=== PATIENT | male | born 1935 | race Caucasian/White ===

== ENCOUNTER → 2016-09-23 | Outpatient (CLI) | payer MEDICARE, OTHER | LOC: RAD 07:40 | PROVIDERS: ATTEND Specialist | DX: C13.9 Malignant neoplasm of hypopharynx, unspecified (principal) | CPT/HCPCS: 70491; 71260; 82565 ==

== ENCOUNTER → 2016-10-10 | Outpatient (CLI) | payer MEDICARE, OTHER ==
[2016-10-10 09:41] LABS: ABSOLUTE BASOPHILS # (AUTO) 0.2 10^3/uL (0.0-0.2); ABSOLUTE EOSINOPHILS # (AUTO) 0.5 10^3/uL (0.0-0.6); ABSOLUTE LYMPHOCYTES (AUTO) 1.4 10^3/uL (0.5-4.7); ABSOLUTE MONOCYTES (AUTO) 0.7 10^3/uL (0.1-1.4); ABSOLUTE NEUT (AUTO) 5.2 10^3/uL (1.7-8.2); EOSINOPHILS % (AUTO) 6.7 % (0-6); HEMATOCRIT 33.7 % (37.9-51.0); HEMOGLOBIN 11.3 g/dL (13.5-17.0); HGB HCT DIFFERENCE 0.2; LYMPHOCYTES % (AUTO) 17.7 % (13-45); MEAN CORPUSCULAR HEMOGLOBIN 25.6 pg (27.0-33.4); MEAN CORPUSCULAR HGB CONC 33.5 g/dL (32.0-36.0); MEAN CORPUSCULAR VOLUME 77 fl (80-97); MONOCYTES % (AUTO) 8.5 % (3-13); RED BLOOD COUNT 4.41 10^6/uL (4.35-5.55); RED CELL DISTRIBUTION WIDTH 17.8 % (11.5-14.0); SEGMENTED NEUTROPHILS % (AUTO) 65.1 % (42-78)
[2016-10-10 10:08] LABS: ALANINE AMINOTRANSFERASE 21 U/L (21-72); ALBUMIN 3.8 g/dL (3.5-5.0); ALKALINE PHOSPHATASE 101 U/L (38-126); ANION GAP 13 (5-19); ASPARTATE AMINO TRANSFERASE 37 U/L (17-59); BILIRUBIN,DIRECT 0.3 mg/dL (0.0-0.4); BILIRUBIN,TOTAL 0.5 mg/dL (0.2-1.3); BLOOD UREA NITROGEN 17 mg/dL (7-20); CALCIUM 9.2 mg/dL (8.4-10.2); CARBON DIOXIDE 26 mmol/L (22-30); CHLORIDE 106 mmol/L (98-107); CHOLESTEROL 197.33 mg/dL (0-200); Direct HDL 45 mg/dL (>40); GLUCOSE 90 mg/dL (75-110); SODIUM 144.5 mmol/L (137-145); TOTAL PROTEIN 7.2 g/dL (6.3-8.2); TRIGLYCERIDES 113 mg/dL (<150)
[2016-10-10 10:19] LABS: DIRECT LDL 111 mg/dL (<100)
== END ==
LOC: OD 07:46
PROVIDERS: ATTEND Internal Medicine
DX: I25.10 Atherosclerotic heart disease of native coronary artery without angina pectoris (principal); I10 Essential (primary) hypertension; E78.5 Hyperlipidemia, unspecified; E03.9 Hypothyroidism, unspecified; R64 Cachexia
CPT/HCPCS: 36415; 80053; 80061; 84443; 85025

== ENCOUNTER → 2017-01-07 | Outpatient (CLI) | payer MEDICARE, OTHER ==
[2017-01-07 09:39] LABS: FREE T3 3.68 pg/mL (2.77-5.27)
[2017-01-07 09:52] LABS: THYROID STIMULATING HORMONE 0.02 uIU/mL (0.47-4.68)
== END ==
LOC: OD 08:10
PROVIDERS: ATTEND Internal Medicine
DX: E03.9 Hypothyroidism, unspecified (principal)
CPT/HCPCS: 36415; 84439; 84443; 84481

== ENCOUNTER → 2017-02-10 | Outpatient (CLI) | payer MEDICARE, OTHER ==
--- NOTE | 2017-02-10 11:44 | RADIOLOGY REPORT (SQ) ---
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 Reconstructed coronal and sagittal MPR images reviewed. All images stored on PACS. All CT scanners at this facility use dose modulation, iterative reconstruction, and/or weight based d osing when appropriate to reduce radiation dose to as low as reasonably achievable (ALARA). [facility]: Dose Right [facility]: CareDose [facility]: Dose Right [facility]: Teradose 4D [facility]: [employer] CONTRAST TYPE AND DOSE: contrast/concentration: Isovue 370.00 mg/ml; Total Contrast Delivered: 75.0 ml; Total Saline Delivered: 55.0 ml RENAL FUNCTION: Creatinine 1.4 RADIATION DOSE: 12.8 mGy . LIMITATIONS: None. FINDINGS: On axial image 55, and sagittal image 64, of heterogeneously enhancing soft tissue nodul e fills the right vallecula, worrisome for recurrent tumor. This measures 1.5 cm transverse by 1.1 c m AP x 2.3 cm craniocaudad more prominent than on 09/23/2016 and PET-CT 03/22/2016. SKULL BASE: Intact. MAJOR SALIVARY GLANDS: No solid or cystic masses. No inflammatory changes. LYMPHADENOPATHY: No adenopathy. MUCOSAL MASSES OR ASYMMETRY: Vallecular mass as above. Post laryngectomy. LARYNX/CORDS: Post laryngectomy VASCULAR STRUCTURES: Very heavy carotid bifurcation calcification bilaterally, with greater than 70% proximal ICA stenosis on vessel diameter measurements. Consider carotid Doppler for followup. Right vertebral dominant, left vertebral artery origin directly off the aortic arch, an anatomic variant LUNG APICES: Obstructive lung disease. No masses. BONES: No fracture or malalignment. Advanced degenerative disc changes sat C3-4 and C4-5. THYROID: Surgically absent PARANASAL SINUSES: Left posterior ethmoid air cell fluid. OTHER: No other significant finding. IMPRESSION: Recurrent soft tissue mass along the rightward vallecula, 1.1 x 2.3 x 1.5 cm as above TECHNICAL DOCUMENTATION: JOB ID: [id number] Quality ID # 436: Final reports with documentation of one or more dose reduction techniques (e.g., Au tomated exposure control, adjustment of the mA and/or kV according to patient size, use of iterative reconstruction technique) 2010 [employer]- All Rights Reserved
== END ==
LOC: RAD 08:43
PROVIDERS: ATTEND Internal Medicine
DX: C13.9 Malignant neoplasm of hypopharynx, unspecified (principal)
CPT/HCPCS: 70491

== ENCOUNTER → 2017-02-16 | Outpatient (CLI) | payer MEDICARE, OTHER ==
--- NOTE | 2017-02-17 10:40 | RADIOLOGY REPORT (SQ) ---
EXAM DESCRIPTION: PET CT SKULL/THIGH COMPLETED DATE/TIME: 02/16/2017 11:27 pm REASON FOR STUDY: MALIGNANT NEOPLASM OF HYPOPHARYNX C13.9 MALIGNANT NEOPLASM OF HYPOPHARYNX, UNSPEC IFIED COMPARISON: 03/22/2016 RADIONUCLIDE AND DOSE: 11.1 mCi F18 FDG The route of agent administration: Intravenous FASTING BLOOD SUGAR: 88 mg/dl CONTRAST TYPE AND DOSE: No CT contrast given. TECHNIQUE: Blood glucose level was verified. Above dose of FDG was injected intravenously. 2-D seg mented attenuation correction images were obtained from the base of the skull to the midthighs. Nonc ontrast CT images were obtained for attenuation correction and fusion with emission images. CT image s were performed without oral or intravenous contrast and are not sensitive for parenchymal lesions. A series of overlapping emission PET images were obtained. Images reviewed and manipulated at [facility] work station by the radiologist. Images stored on PACS. LIMITATIONS: None. FINDINGS: HEAD AND NECK: Increased uptake measuring about 7.1 SUV within the right hypopharynx. The re is a rind of tissue that now measures about 8 mm. This previously measured about 4 mm and about 3 .7 SUV. CHEST: No areas of abnormal metabolic activity in the chest. ABDOMEN AND PELVIS: No areas of abnormal metabolic activity in the abdomen or pelvis. Expected physi ologic activity is present in the genitourinary system and bowel. PROXIMAL LOWER EXTREMITIES: No areas of abnormal metabolic activity in the soft tissues of the lower extremities. BONES: No abnormal metabolic activity in the visualized skeleton. ADDITIONAL CT FINDINGS: Left-sided port tip in the SVC. Old granulomatous disease. COPD. OTHER: No other significant findings. IMPRESSION: Local progression of hypermetabolic lesion in the hypopharynx. No evidence of distant m etastasis. TECHNICAL DOCUMENTATION: JOB ID: [id number] [employer]- All Rights Reserved
== END ==
LOC: RAD 18:57
PROVIDERS: ATTEND Internal Medicine
DX: C13.9 Malignant neoplasm of hypopharynx, unspecified (principal)
CPT/HCPCS: 78815; A9552

== ENCOUNTER → 2017-05-13 | Outpatient (CLI) | payer MEDICARE, OTHER | LOC: OD 08:36 | PROVIDERS: ATTEND Internal Medicine | DX: E03.9 Hypothyroidism, unspecified (principal) | CPT/HCPCS: 36415; 84443 ==

== ENCOUNTER → 2017-05-20 | Outpatient (CLI) | payer MEDICARE, OTHER ==
--- NOTE | 2017-05-20 10:32 | RADIOLOGY REPORT (SQ) ---
EXAM DESCRIPTION: CT CHEST WITH COMPLETED DATE/TIME: 05/20/2017 9:35 am REASON FOR STUDY: CA OF HYPOPHARYNX C13.9 MALIGNANT NEOPLASM OF HYPOPHARYNX, UNSPECIFIED COMPARISON: PET-CT from January. CT chest from September. TECHNIQUE: CT scan of the chest performed using helical scanning technique with dynamic intravenous contrast injection. Images reviewed with lung, soft tissue and bone windows. Reconstructed coronal and sagittal MPR images reviewed. All images stored on PACS. All CT scanners at this facility use dose modulation, iterative reconstruction, and/or weight based d osing when appropriate to reduce radiation dose to as low as reasonably achievable (ALARA). [facility]: Dose Right [facility]: CareDose [facility]: Dose Right [facility]: Teradose 4D [facility]: [employer] CONTRAST TYPE AND DOSE: contrast/concentration: Isovue 370.00 mg/ml; Total Contrast Delivered: 80.0 ml; Total Saline Delivered: 55.0 ml RENAL FUNCTION: Creatinine 1.2 RADIATION DOSE: . LIMITATIONS: None. FINDINGS: LUNGS AND PLEURA: Hyperinflated. Mild apical scar, chronic. No developing lesions. No p leural disease. HILAR AND MEDIASTINAL STRUCTURES: No identified masses or abnormal nodes. HEART AND VASCULAR STRUCTURES: No pericardial effusion. Previous CABG. Mild aortic ectasia, ascendi ng segment 3.6 cm. No focal aneurysm or dissection. Patent brachiocephalic and left common carotid arteries. Left subclavian artery looks occluded just beyond origin. HARDWARE: Left port. UPPER ABDOMEN: No significant findings. Limited exam. THYROID AND OTHER SOFT TISSUES: Thyroid presumably surgically absent. Please see separately dictated neck CT from same date. No overt chest wall mass. No developing or progressive axillary adenopathy . Subcentimeter nodes on the right. BONES: No developing fracture or bone lesion. OTHER: No other significant finding. IMPRESSION: 1. No evidence of thoracic metastatic disease. 2. Occluded left proximal subclavian ar wesley. TECHNICAL DOCUMENTATION: JOB ID: [id number] Quality ID # 436: Final reports with documentation of one or more dose reduction techniques (e.g., Au tomated exposure control, adjustment of the mA and/or kV according to patient size, use of iterative reconstruction technique) 2010 [employer]- All Rights Reserved
--- NOTE | 2017-05-20 11:29 | RADIOLOGY REPORT (SQ) ---
EXAM DESCRIPTION: CT SOFT TISSUE NECK WITH COMPLETED DATE/TIME: 05/20/2017 9:35 am REASON FOR STUDY: CA OF HYPOPHARYNX C13.9 MALIGNANT NEOPLASM OF HYPOPHARYNX, UNSPECIFIED COMPARISON: PET-CT 03/22/2016, 02/10/2017 CT soft tissue neck 09/23/2016, 02/10/2017 TECHNIQUE: Post IV contrasted scanning from skull base through lung apices with review of bone, soft tissue and lung windows. Reconstructed coronal and sagittal MPR images reviewed. All images stored on PACS. All CT scanners at this facility use dose modulation, iterative reconstruction, and/or weight based d osing when appropriate to reduce radiation dose to as low as reasonably achievable (ALARA). [facility]: Dose Right [facility]: CareDose [facility]: Dose Right [facility]: Teradose 4D [facility]: [facility] CONTRAST TYPE AND DOSE: 80 mL Isovue 370- low osmolar. RENAL FUNCTION: Creatinine 1.2 RADIATION DOSE: 4.8 mGy . LIMITATIONS: None. FINDINGS: Patient is post laryngectomy, tracheostomy, and bilateral radical neck dissection. There is recurrent tumor in the right hypopharynx, 2.2 cm transverse by 1.2 cm AP by 2.4 cm cranioca udad. Recurrent tumor is best shown on axial images 62-69 and sagittal reconstruction images 72-80. Tumor extends from the level of the hyoid bone inferiorly, and is along the right hypopharynx with a tail of tissue extending anteriorly to across midline. Overall, this is very similar as compared to PET-CT 02/16/2017. SKULL BASE: Intact. MAJOR SALIVARY GLANDS: Parotid glands are normal size. Submandibular glands appear to have been rese cted. LYMPHADENOPATHY: No bulky cervical adenopathy. 4 to 5 mm left submental lymph node axial image 65, u nchanged from previous studies go MUCOSAL MASSES OR ASYMMETRY: As above LARYNX/CORDS: Post laryngectomy VASCULAR STRUCTURES: There is significant narrowing of the distal left common carotid artery/proximal internal carotid artery at the bifurcation with greater than 70% diameter narrowing. Atheroscleroti c irregularity right carotid bifurcation with about 50% proximal right ICA stenosis. LUNG APICES: Clear. BONES: Sclerosis in the C4 vertebral body may be related to prior radiation therapy THYROID: Surgically absent PARANASAL SINUSES: Clear. OTHER: No other significant finding. IMPRESSION: Stable hypopharynx enhancing recurrent tumor as compared to PET-CT 02/16/2017 TECHNICAL DOCUMENTATION: JOB ID: [id number] Quality ID # 436: Final reports with documentation of one or more dose reduction techniques (e.g., Au tomated exposure control, adjustment of the mA and/or kV according to patient size, use of iterative reconstruction technique) 2010 [employer] All Rights Reserved
== END ==
LOC: RAD 08:47
PROVIDERS: ATTEND Internal Medicine
DX: C13.9 Malignant neoplasm of hypopharynx, unspecified (principal)
CPT/HCPCS: 70491; 71260; 82565

== ENCOUNTER → 2017-09-22 | Outpatient (CLI) | payer MEDICARE, OTHER ==
--- NOTE | 2017-09-22 09:52 | RADIOLOGY REPORT (SQ) ---
EXAM DESCRIPTION: CT CHEST WITH COMPLETED DATE/TIME: 09/22/2017 9:31 am REASON FOR STUDY: MAL CECY OF HYPOPHARYNX, UNSPECIFIED C13.9 MALIGNANT NEOPLASM OF HYPOPHARYNX, UNSP ECIFIED COMPARISON: CT chest 09/23/2016, 05/20/2017 PET-CT 03/22/2016 TECHNIQUE: CT scan of the chest performed using helical scanning technique with dynamic intravenous contrast injection. Images reviewed with lung, soft tissue and bone windows. Reconstructed coronal and sagittal MPR images reviewed. All images stored on PACS. All CT scanners at this facility use dose modulation, iterative reconstruction, and/or weight based d osing when appropriate to reduce radiation dose to as low as reasonably achievable (ALARA). [facility]: Dose Right [facility]: CareDose [facility]: Dose Right [facility]: Teradose 4D [facility]: [employer] CONTRAST TYPE AND DOSE: contrast/concentration: Isovue 370.00 mg/ml; Total Contrast Delivered: 80.0 ml; Total Saline Delivered: 55.0 ml RENAL FUNCTION: Creatinine 1.3 RADIATION DOSE: CT Rad equipment meets quality standard of care and radiation dose reduction techniq ues were employed. CTDIvol: 3.9 mGy. DLP: 170 mGy-cm. . LIMITATIONS: None. FINDINGS: LUNGS AND PLEURA: Diffuse changes of obstructive lung disease. No acute infiltrates. No pulmonary nodules. No pleural effusion. No pneumothorax. HILAR AND MEDIASTINAL STRUCTURES: No identified masses or abnormal nodes. HEART AND VASCULAR STRUCTURES: No aneurysm or dissection. No central pulmonary emboli. No pericardi al effusion. Mild aortic valve calcification. Moderate platinum coronary artery calcifications. Old sternotomy for CABG HARDWARE: Left-sided permanent central line tip superior vena cava UPPER ABDOMEN: No significant findings. Limited exam. THYROID AND OTHER SOFT TISSUES: No masses. No adenopathy. BONES: No significant finding. OTHER: No other significant finding. IMPRESSION: End-stage appearance of obstructive lung disease. No acute infiltrates. No worrisome p ulmonary nodules. TECHNICAL DOCUMENTATION: JOB ID: [id number] Quality ID # 436: Final reports with documentation of one or more dose reduction techniques (e.g., Au tomated exposure control, adjustment of the mA and/or kV according to patient size, use of iterative reconstruction technique) 2010 [employer]- All Rights Reserved Reading location - IP/workstation name: [facility]
== END ==
LOC: RAD 09:01
PROVIDERS: ATTEND Internal Medicine Hematology & Oncology
DX: C13.9 Malignant neoplasm of hypopharynx, unspecified (principal); J44.9 Chronic obstructive pulmonary disease, unspecified
CPT/HCPCS: 71260

== ENCOUNTER → 2017-09-29 | Outpatient (CLI) | payer MEDICARE, OTHER ==
--- NOTE | 2017-09-29 15:38 | RADIOLOGY REPORT (SQ) ---
EXAM DESCRIPTION: CT SOFT TISSUE NECK WITH COMPLETED DATE/TIME: 09/29/2017 2:36 pm REASON FOR STUDY: MAL CECY OF HYPOPHARYNX, UNSPECIFIED/OVERLAPPING SITE OF HYPOPHARYNX C13.9 MALIGNA NT NEOPLASM OF HYPOPHARYNX, UNSPECIFIED COMPARISON: CT soft tissue neck 05/20/2017, 02/10/2017, 09/23/2016, 07/19/2014, 09/30/2014 PET-CT 03/22/2016, 11/12/2015 TECHNIQUE: Post IV contrasted scanning from skull base through lung apices with review of bone, soft tissue and lung windows. Reconstructed coronal and sagittal MPR images reviewed. All images stored on PACS. All CT scanners at this facility use dose modulation, iterative reconstruction, and/or weight based d osing when appropriate to reduce radiation dose to as low as reasonably achievable (ALARA). [facility]: Dose Right [facility]: CareDose [facility]: Dose Right [facility]: Teradose 4D [facility]: [employer] CONTRAST TYPE AND DOSE: contrast/concentration: Isovue 370.00 mg/ml; Total Contrast Delivered: 75.0 ml; Total Saline Delivered: 55.0 ml RENAL FUNCTION: Creatinine 1.1 RADIATION DOSE: 10.8 mGy . LIMITATIONS: None. FINDINGS: Patient is post laryngectomy, tracheostomy and bilateral radical neck dissection. There is recurrent tumor in the right hypopharynx, larger than on 05/20/2017 and PET-CT 02/16/2017. C urrently tumor measures 3 cm craniocaudad by 3 cm AP x 2 cm transverse (was 2.4 cm craniocaudad by 1. 2 cm AP x 2.2 cm transverse on 05/20/2017). No cervical adenopathy. No other pharyngeal mucosal lesions. SKULL BASE: Inferior brain parenchyma unremarkable. MAJOR SALIVARY GLANDS: No solid or cystic masses. No inflammatory changes. LYMPHADENOPATHY: Bilateral radical neck dissection. No adenopathy. MUCOSAL MASSES OR ASYMMETRY: As above LARYNX/CORDS: Post laryngectomy VASCULAR STRUCTURES: Again, a high-grade narrowing of the disc left proximal ICA at the carotid bifur cation is present, greater than 70% narrowing on axial image 57. LUNG APICES: Obstructive lung disease. No focal infiltrates BONES: Osteoporotic. Bilateral foraminal narrowing at C3-4 and C4-5 from bony spurring. THYROID: Surgically absent PARANASAL SINUSES: Clear. OTHER: No other significant finding. IMPRESSION: Increase in size of hypopharyngeal mass compared to 05/20/2017 TECHNICAL DOCUMENTATION: JOB ID: [id number] Quality ID # 436: Final reports with documentation of one or more dose reduction techniques (e.g., Au tomated exposure control, adjustment of the mA and/or kV according to patient size, use of iterative reconstruction technique) 2010 [employer]- All Rights Reserved Reading location - IP/workstation name: [email or web address] [id number]
== END ==
LOC: RAD 14:08
PROVIDERS: ATTEND Internal Medicine Hematology & Oncology
DX: C13.8 Malignant neoplasm of overlapping sites of hypopharynx (principal); J44.9 Chronic obstructive pulmonary disease, unspecified
CPT/HCPCS: 70491

== ENCOUNTER 2017-12-08 18:22 | Inpatient (IN) | payer MEDICARE, OTHER ==
[2017-12-08] MEDS ORDERED: NORMAL SALINE 250 ML IV ONE (20:07)
[2017-12-08] MEDS ORDERED: VANCOMYCIN HCL INJ 1000 MG VIAL IV ONE (20:08)
[2017-12-08 20:49] LABS: ABSOLUTE BASOPHILS # (AUTO) 0.1 10^3/uL (0.0-0.2); ABSOLUTE EOSINOPHILS # (AUTO) 0.1 10^3/uL (0.0-0.6); ABSOLUTE LYMPHOCYTES (AUTO) 0.5 10^3/uL (0.5-4.7); ABSOLUTE MONOCYTES (AUTO) 0.4 10^3/uL (0.1-1.4); ABSOLUTE NEUT (AUTO) 4.5 10^3/uL (1.7-8.2); BASOPHILS % (AUTO) 1.1 % (0-2); EOSINOPHILS % (AUTO) 0.9 % (0-6); HEMATOCRIT 31.9 % (37.9-51.0); HEMOGLOBIN 11.1 g/dL (13.5-17.0); LYMPHOCYTES % (AUTO) 8.4 % (13-45); MEAN CORPUSCULAR HGB CONC 34.6 g/dL (32.0-36.0); MEAN CORPUSCULAR VOLUME 84 fl (80-97); PLATELET COUNT 309 10^3/uL (150-450); RED BLOOD COUNT 3.82 10^6/uL (4.35-5.55); RED CELL DISTRIBUTION WIDTH 13.8 % (11.5-14.0); SEGMENTED NEUTROPHILS % (AUTO) 81.6 % (42-78); TOTAL CELLS COUNTED % (AUTO) 100 %; WHITE BLOOD COUNT 5.6 10^3/uL (4.0-10.5)
[2017-12-08 21:04] LABS: ALANINE AMINOTRANSFERASE 19 U/L (21-72); ALBUMIN 2.7 g/dL (3.5-5.0); ALKALINE PHOSPHATASE 88 U/L (38-126); ANION GAP 10 (5-19); ASPARTATE AMINO TRANSFERASE 11 U/L (17-59); BILIRUBIN,DIRECT 0.6 mg/dL (0.0-0.4); BLOOD UREA NITROGEN 28 mg/dL (7-20); CALCIUM 8.5 mg/dL (8.4-10.2); CARBON DIOXIDE 29 mmol/L (22-30); CHLORIDE 100 mmol/L (98-107); CREATINE KINASE 21 U/L (55-170); GLUCOSE 53 mg/dL (75-110); PHOSPHORUS 3.8 mg/dL (2.5-4.5); POTASSIUM 4.6 mmol/L (3.6-5.0); TOTAL PROTEIN 5.9 g/dL (6.3-8.2)
[2017-12-08 21:27] LABS: CREATINE KINASE MB 0.56 ng/mL (<4.55); NT PRO BNP 1140 pg/mL (<450)
[2017-12-08 21:33] LABS: TROPONIN I < 0.012 ng/mL
--- NOTE | 2017-12-08 22:14 | EKG REPORT ---
SEVERITY:- NORMAL ECG - SINUS RHYTHM : Confirmed by: Margarita Griffiths 08-Dec-2017 22:13:50
--- NOTE | 2017-12-08 22:31 | RADIOLOGY REPORT (SQ) ---
EXAM DESCRIPTION: CT HEAD WITHOUT COMPLETED DATE/TIME: 12/08/2017 10:17 pm REASON FOR STUDY: fall COMPARISON: None. TECHNIQUE: Axial images acquired through the brain without intravenous contrast. Images reviewed wi th bone, brain and subdural windows. Additional sagittal and coronal reconstructions were generated. Images stored on PACS. All CT scanners at this facility use dose modulation, iterative reconstruction, and/or weight based d osing when appropriate to reduce radiation dose to as low as reasonably achievable (ALARA). [facility]: Dose Right [facility]: CareDose [facility]: Dose Right [facility]: Teradose 4D [facility]: [employer] RADIATION DOSE: CT Rad equipment meets quality standard of care and radiation dose reduction techniq ues were employed. CTDIvol: 53.2 mGy. DLP: 911 mGy-cm. mGy. LIMITATIONS: None. FINDINGS: VENTRICLES: Normal size and contour. CEREBRUM: No masses. No hemorrhage. No midline shift. No evidence for acute infarction. Normal gra y/white matter differentiation. No areas of low density in the white matter. CEREBELLUM: No masses. No hemorrhage. No alteration of density. No evidence for acute infarction. EXTRAAXIAL SPACES: No fluid collections. No masses. ORBITS AND GLOBE: No intra- or extraconal masses. Normal contour of globe without masses. CALVARIUM: No fracture. PARANASAL SINUSES: No fluid or mucosal thickening. SOFT TISSUES: No mass or hematoma. OTHER: No other significant finding. IMPRESSION: NORMAL BRAIN CT WITHOUT CONTRAST. EVIDENCE OF ACUTE STROKE: NO. COMMENT: Quality ID # 436: Final reports with documentation of one or more dose reduction techniques (e.g., Automated exposure control, adjustment of the mA and/or kV according to patient size, use of iterative reconstruction technique) TECHNICAL DOCUMENTATION: JOB ID: [id number] [employer]- All Rights Reserved Reading location - IP/workstation name: [email or web address]
--- NOTE | 2017-12-08 22:32 | RADIOLOGY REPORT (SQ) ---
EXAM DESCRIPTION: SHOULDER RIGHT 2 OR MORE VIEWS COMPLETED DATE/TIME: 12/08/2017 10:24 pm REASON FOR STUDY: fall COMPARISON: None. NUMBER OF VIEWS: Three views. TECHNIQUE: Internal rotation, external rotation, and Y view images acquired of the right shoulder. LIMITATIONS: None. FINDINGS: MINERALIZATION: Normal. BONES: No acute fracture or dislocation. No worrisome bone lesions. JOINTS: No dislocation. VISUALIZED LUNGS AND RIBS: No pneumothorax. No rib fracture. SOFT TISSUES: No radiopaque foreign body. OTHER: No other significant finding. IMPRESSION: NEGATIVE STUDY OF THE RIGHT SHOULDER. NO RADIOGRAPHIC EVIDENCE OF ACUTE INJURY. TECHNICAL DOCUMENTATION: JOB ID: [id number] [employer]- All Rights Reserved Reading location - IP/workstation name: [email or web address]
--- NOTE | 2017-12-08 23:16 | RADIOLOGY REPORT (SQ) ---
EXAM DESCRIPTION: CT neck and chest with IV contrast CLINICAL HISTORY: H/o of cancer, trach, SOB unable to swallow COMPARISON: None Available. TECHNIQUE: Contiguous axial images of the chest and neck were obtained followed by reconstruction images. This exam was performed according to our departmental dose-optimization program, which includes automated exposure control, adjustment of the mA and/or kV according to patient size and/or use of iterative reconstruction technique. FINDINGS: There is a heterogeneous mass lesion involving the mucosal of the oral pharynx and trachea on the right side and There is a heterogeneous partially enhancing mass seen at the right side of the oropharynx at the level of C3-4 and extending down to the level of the epiglottis where it completely surrounds the esophagus with no lumen identified, at the level of C5-6, and extends down to the level of C7-T1. This mass encases the esophagus. There are mildly enlarged lymph nodes involving the neck base and mediastinum. The patient is cachectic. There are postsurgical changes. There are vascular calcifications. There are extensive emphysematous changes of the lungs. Calcified nodule in the left lung measures 5 mm. Calcified nodule in the right mid lung measures 4 mm. No pneumothorax. The left subclavian artery appears occluded just at its origin. It reconstitutes at the level of the neck base. The aorta is tortuous. There is a filling defect in the aorta of the upper abdomen, incompletely imaged. No other acute abnormality. IMPRESSION: Heterogeneous mass encases the esophagus as described and is highly worrisome for neoplasm.
--- NOTE | 2017-12-08 23:16 | RADIOLOGY REPORT (SQ) ---
EXAM DESCRIPTION: CLINICAL HISTORY: H/o of cancer, trach, SOB unable to swallow COMPARISON: None Available. TECHNIQUE: Contiguous axial images of the chest were obtained from the thoracic inlet up to the upper abdomen followed by reconstruction images. This exam was performed according to our departmental dose-optimization program, which includes automated exposure control, adjustment of the mA and/or kV according to patient size and/or use of iterative reconstruction technique. FINDINGS: There is a heterogeneous mass lesion involving the mucosal of the oral pharynx and trachea on the right side and There is a heterogeneous partially enhancing mass seen at the right side of the oropharynx at the level of C3-4 and extending down to the level of the epiglottis where it completely surrounds the esophagus with no lumen identified, at the level of C5-6, and extends down to the level of C7-T1. This mass encases the esophagus. There are mildly enlarged lymph nodes involving the neck base and mediastinum. The patient is cachectic. There are postsurgical changes. There are vascular calcifications. There are extensive emphysematous changes of the lungs. Calcified nodule in the left lung measures 5 mm. Calcified nodule in the right mid lung measures 4 mm. No pneumothorax. The left subclavian artery appears occluded just at its origin. It reconstitutes at the level of the neck base. The aorta is tortuous. There is a filling defect in the aorta of the upper abdomen, incompletely imaged. No other acute abnormality. The aorta is of normal contour and tapering. There is no pericardial or pleural fluid collection. There is no parenchymal consolidation or pneumothorax. Limited images of the upper abdomen are within normal limits. IMPRESSION: Heterogeneous mass encases the esophagus as described and is highly worrisome for neoplasm.
[2017-12-09] MEDS ORDERED: DEXTROSE 5%-LACTATED RINGERS 1,000 ML IV PRN (00:19)
--- NOTE | 2017-12-09 00:27 | PDOC H&P ---
History of Present Illness Admission Date/PCP: TOYA GAY, History of Present Illness: DEEPAK WILSON is a very pleasant but unfortunate 82 year old male with past medical history of hypertension, hyperlipidemia, peripheral arterial disease, hypothyroidism, coronary artery disease and laryngeal CA. First patient was diagnosed with laryngeal CA in 1990 he is status post total laryngectomy. Patient has been in remission and in good condition until 3 years when his cancer recurred. Patient has progressive weight loss decreased appetite and poor oral intake since then. He CT scan of the neck reported as heterogeneous mass encasing the esophagus. Patient is basically admitted for hydration, palliative care and possible hospice placement. Past Medical History Cardiac Medical History: Reports: Coronary Artery Disease, Myocardial Infarction - 2005, Hypertension - on meds Pulmonary Medical History: Reports: Chronic Obstructive Pulmonary Disease (COPD ) - o2 prn 2l nc Denies: Asthma, Bronchitis, Pneumonia, Tuberculosis Neurological Medical History: Denies: Seizures GI Medical History: Reports: Gastroesophageal Reflux Disease Denies: Hepatitis, Hiatal Hernia Musculoskeltal Medical History: Denies: Arthritis Psychiatric Medical History: Denies: Depression Hematology: Denies: Anemia, Sickle Cell Disease Past Surgical History Past Surgical History: Reports: Other - Laryngectomy Denies: Pacemaker Social History Smoking Status: Former Smoker Frequency of Alcohol Use: None Hx Recreational Drug Use: No Drugs: None Hx Prescription Drug Abuse: No - Advance Directive Resuscitation Status: Do Not Resuscitate Family History Family History: Hypertension Parental Family History Reviewed: Yes Children Family History Reviewed: Yes Sibling(s) Family History Reviewed.: Yes Medication/Allergy Home Medications: Aspirin [Ecotrin 81 mg EC Tablet] 81 mg PO DAILY 07/20/12 Levothyroxine Sodium [Synthroid 0.1 mg Tablet] 88 mcg PO DAILY 07/20/12 Lisinopril [Prinivil 20 mg Tablet] 20 mg PO BID 07/20/12 Allergies/Adverse Reactions: ibuprofen [From Motrin] Allergy (Mild, Verified 12/08/17 18:58) GETS VERY SICK atorvastatin calcium [From Lipitor] Allergy (Verified 12/08/17 18:58) GET VERY SICK Review of Systems Constitutional: ABSENT: chills, fever(s), headache(s), weight gain, weight loss Eyes: ABSENT: visual disturbances Ears: ABSENT: hearing changes Cardiovascular: ABSENT: chest pain, dyspnea on exertion, edema, orthropnea, palpitations Respiratory: ABSENT: cough, hemoptysis Gastrointestinal: ABSENT: abdominal pain, constipation, diarrhea, hematemesis, hematochezia, nausea, vomiting Genitourinary: ABSENT: dysuria, hematuria Musculoskeletal: ABSENT: joint swelling Integumentary: ABSENT: rash, wounds Neurological: ABSENT: abnormal gait, abnormal speech, confusion, dizziness, focal weakness, syncope Psychiatric: ABSENT: anxiety, depression, homidical ideation, suicidal ideation Endocrine: ABSENT: cold intolerance, heat intolerance, polydipsia, polyuria Hematologic/Lymphatic: ABSENT: easy bleeding, easy bruising Physical Exam Vital Signs: Temp Pulse Resp BP Pulse Ox 97.5 F 89 20 104/64 98 12/08/17 19:01 12/08/17 19:01 12/08/17 21:03 12/08/17 21:01 12/08/17 19:01 Intake & Output 12/07/17 12/08/17 12/09/17 06:59 06:59 06:59 Weight 45.359 kg General appearance: PRESENT: other - Cachectic Head exam: PRESENT: atraumatic, normocephalic Ear exam: PRESENT: normal external ear exam Neck exam: PRESENT: tracheostomy Respiratory exam: PRESENT: crackles, decreased breath sounds, rhonchi Cardiovascular exam: PRESENT: RRR. ABSENT: diastolic murmur, rubs, systolic murmur Neurological exam: PRESENT: alert, awake Psychiatric exam: PRESENT: depressed Results Laboratory Results: 12/08/17 20:25 12/08/17 20:25 12/08/17 12/08/17 12/08/17 20:25 20:25 20:25 WBC 5.6 RBC 3.82 L Hgb 11.1 L Hct 31.9 L MCV 84 MCH 29.0 MCHC 34.6 RDW 13.8 Plt Count 309 Seg Neutrophils % 81.6 H Lymphocytes % 8.4 L Monocytes % 8.0 Eosinophils % 0.9 Basophils % 1.1 Absolute Neutrophils 4.5 Absolute Lymphocytes 0.5 Absolute Monocytes 0.4 Absolute Eosinophils 0.1 Absolute Basophils 0.1 Sodium 139.0 Potassium 4.6 Chloride 100 Carbon Dioxide 29 Anion Gap 10 BUN 28 H Creatinine 1.28 H Est GFR ( Amer) > 60 Est GFR (Non-Af Amer) 54 L Glucose 53 L Lactic Acid 0.9 Calcium 8.5 Phosphorus 3.8 Magnesium 2.2 Total Bilirubin 1.0 AST 11 L ALT 19 L Alkaline Phosphatase 88 Total Protein 5.9 L Albumin 2.7 L 12/08/17 12/08/17 20:25 20:25 Creatine Kinase 21 L CK-MB (CK-2) 0.56 Troponin I < 0.012 NT-Pro-B Natriuret Pep 1140 H Impressions: Chest CT 12/08/17 20:04 IMPRESSION: Heterogeneous mass encases the esophagus as described and is highly worrisome for neoplasm. Soft Tissue Neck CT 12/08/17 20:04 IMPRESSION: Heterogeneous mass encases the esophagus as described and is highly worrisome for neoplasm. Head CT 12/08/17 21:43 IMPRESSION: NORMAL BRAIN CT WITHOUT CONTRAST. EVIDENCE OF ACUTE STROKE: NO. Shoulder X-Ray 12/08/17 21:43 IMPRESSION: NEGATIVE STUDY OF THE RIGHT SHOULDER. NO RADIOGRAPHIC EVIDENCE OF ACUTE INJURY. Assessment & Plan - Diagnosis (1) Pulmonary laryngeal squamous cell carcin Is this a current diagnosis for this admission?: Yes Plan: Patient and family agree for palliative care and possible hospice placement. ER attending also discussed the case with Dr. Espinoza who is going to see him tomorrow (2) Poor oral intake Is this a current diagnosis for this admission?: Yes Plan: Patient has been started on D5W and Ringer lactate.
--- NOTE | 2017-12-09 00:35 | ER Document Report ---
ED General - General Chief Complaint: Pedal Edema Stated Complaint: HAND/FEET SWELLING Time Seen by Provider: 12/08/17 19:03 Mode of Arrival: Ambulatory Information source: Patient, Relative, [facility] Records Notes: 82 year old male with hypertension, hyperlipidemia, peripheral arterial disease, hypothyroidism, coronary artery disease and laryngeal CA. Patient was diagnosed with laryngeal CA in 1990 he is status post total laryngectomy. He was in remission until 3 years ago when cancer recurred. Patient has progressive weight loss decreased appetite and poor oral intake since then. Sons are at the bedside and states that the patient has been unable to swallow any food or liquid for the past week. They state that every time he swallows it immediately comes up. Patient also had a fall today. He denies any head injury or loss of consciousness but is complaining of right shoulder pain. Son's also state that they noticed some purulent drainage from the trach site over the last few days. They state this is new. Patient does currently receive K Truvada for his laryngeal cancer. TRAVEL OUTSIDE OF THE [place] IN LAST 30 DAYS: No - HPI Onset: Other Onset/Duration: Gradual Quality of pain: Throbbing Severity: Mild Associated symptoms: Productive cough, Nausea, Shortness of breath. denies: Chest pain Exacerbated by: Denies Relieved by: Denies Similar symptoms previously: Yes Recently seen / treated by doctor: Yes - Related Data Allergies/Adverse Reactions: ibuprofen [From Motrin] Allergy (Mild, Verified 12/08/17 18:58) GETS VERY SICK atorvastatin calcium [From Lipitor] Allergy (Verified 12/08/17 18:58) GET VERY SICK Past Medical History - General Information source: Patient, Relative, [facility] Records - Social History Smoking Status: Former Smoker Frequency of alcohol use: None Drug Abuse: None Lives with: Family Family History: Reviewed & Not Pertinent, Hypertension Patient has suicidal ideation: No Patient has homicidal ideation: No - Past Medical History Cardiac Medical History: Reports: Hx Coronary Artery Disease, Hx Heart Attack - 2005, Hx Hypertension - on meds Pulmonary Medical History: Reports: Hx COPD - o2 prn 2l nc Denies: Hx Asthma, Hx Bronchitis, Hx Pneumonia, Hx Tuberculosis Neurological Medical History: Denies: Hx Cerebrovascular Accident, Hx Seizures Renal/ Medical History: Denies: Hx Peritoneal Dialysis GI Medical History: Reports: Hx Gastroesophageal Reflux Disease. Denies: Hx Hepatitis, Hx Hiatal Hernia, Hx Ulcer Musculoskeltal Medical History: Denies Hx Arthritis Psychiatric Medical History: Denies: Hx Depression Infectious Medical History: Denies: Hx Hepatitis Past Surgical History: Reports: Hx Abdominal Surgery - AAA, Hx Open Heart Surgery - CABG X 5, Other - Laryngectomy. Denies: Hx Pacemaker - Immunizations Hx Diphtheria, Pertussis, Tetanus Vaccination: - UNSURE Hx Pneumococcal Vaccination: 03/25/11 Review of Systems - Review of Systems Constitutional: Malaise, Weakness, Other - Poor p.o. intake, Weight loss EENT: Throat pain, Difficulty swallowing Cardiovascular: Lightheaded. denies: Chest pain, Palpitations, Syncope Respiratory: Cough, Short of breath Gastrointestinal: Nausea. denies: Abdominal pain Genitourinary: denies: Dysuria, Flank pain Male Genitourinary: No symptoms reported Musculoskeletal: Joint swelling - Right shoulder pain, Muscle stiffness Skin: Rash - Erythema of the upper chest Hematologic/Lymphatic: Enlarged lymph nodes Neurological/Psychological: Weakness. denies: Confusion -: Yes All other systems reviewed and negative Physical Exam - Vital signs Vitals: Temp Pulse Resp BP Pulse Ox 97.5 F 89 16 97/63 L 98 12/08/17 19:01 12/08/17 19:01 12/08/17 19:01 12/08/17 19:01 12/08/17 19:01 - Notes Notes: PHYSICAL EXAMINATION: GENERAL: Cachectic, ill-appearing HEAD: Atraumatic, normocephalic. EYES: Pupils equal round and reactive to light, extraocular movements intact, sclera anicteric, conjunctiva are normal. ENT: Nares patent, oropharynx clear without exudates. Dry mucous membranes. NECK: Tracheostomy site with purulent drainage. No stridor LUNGS: Diminished breath sounds bilaterally HEART: Regular rate and rhythm without murmurs ABDOMEN: Soft, nontender, nondistended abdomen. No guarding, no rebound. No masses appreciated. Musculoskeletal: Normal range of motion, 1 + edema. No cyanosis. NEUROLOGICAL: Cranial nerves grossly intact. Normal sensory, motor exams PSYCH: Normal mood, normal affect. SKIN: Warm, Dry, normal turgor, no rashes or lesions noted. Course - Re-evaluation Re-evalutation: Laboratory 12/08/17 12/08/17 12/08/17 20:25 20:25 20:25 WBC 5.6 RBC 3.82 L Hgb 11.1 L Hct 31.9 L MCV 84 MCH 29.0 MCHC 34.6 RDW 13.8 Plt Count 309 Seg Neutrophils % 81.6 H Lymphocytes % 8.4 L Monocytes % 8.0 Eosinophils % 0.9 Basophils % 1.1 Absolute Neutrophils 4.5 Absolute Lymphocytes 0.5 Absolute Monocytes 0.4 Absolute Eosinophils 0.1 Absolute Basophils 0.1 Sodium 139.0 Potassium 4.6 Chloride 100 Carbon Dioxide 29 Anion Gap 10 BUN 28 H Creatinine 1.28 H Est GFR ( Amer) > 60 Est GFR (Non-Af Amer) 54 L Glucose 53 L Lactic Acid Calcium 8.5 Phosphorus 3.8 Magnesium 2.2 Total Bilirubin 1.0 Direct Bilirubin 0.6 H Neonat Total Bilirubin Not Reportable Neonat Direct Bilirubin Not Reportable Neonat Indirect Bili Not Reportable AST 11 L ALT 19 L Alkaline Phosphatase 88 Creatine Kinase 21 L CK-MB (CK-2) 0.56 Troponin I < 0.012 NT-Pro-B Natriuret Pep 1140 H Total Protein 5.9 L Albumin 2.7 L 12/08/17 20:25 WBC RBC Hgb Hct MCV MCH MCHC RDW Plt Count Seg Neutrophils % Lymphocytes % Monocytes % Eosinophils % Basophils % Absolute Neutrophils Absolute Lymphocytes Absolute Monocytes Absolute Eosinophils Absolute Basophils Sodium Potassium Chloride Carbon Dioxide Anion Gap BUN Creatinine Est GFR ( Amer) Est GFR (Non-Af Amer) Glucose Lactic Acid 0.9 Calcium Phosphorus Magnesium Total Bilirubin Direct Bilirubin Neonat Total Bilirubin Neonat Direct Bilirubin Neonat Indirect Bili AST ALT Alkaline Phosphatase Creatine Kinase CK-MB (CK-2) Troponin I NT-Pro-B Natriuret Pep Total Protein Albumin Chest CT 12/08/17 20:04 IMPRESSION: Heterogeneous mass encases the esophagus as described and is highly worrisome for neoplasm. Soft Tissue Neck CT 12/08/17 20:04 IMPRESSION: Heterogeneous mass encases the esophagus as described and is highly worrisome for neoplasm. Head CT 12/08/17 21:43 IMPRESSION: NORMAL BRAIN CT WITHOUT CONTRAST. EVIDENCE OF ACUTE STROKE: NO. Shoulder X-Ray 12/08/17 21:43 IMPRESSION: NEGATIVE STUDY OF THE RIGHT SHOULDER. NO RADIOGRAPHIC EVIDENCE OF ACUTE INJURY. 12/09/17 01:25 82 year old male with hypertension, hyperlipidemia, peripheral arterial disease, hypothyroidism, coronary artery disease and laryngeal CA. Patient was diagnosed with laryngeal CA in 1990 he is status post total laryngectomy. He was in remission until 3 years ago when cancer recurred. Patient has progressive weight loss decreased appetite and poor oral intake since then. Sons are at the bedside and states that the patient has been unable to swallow any food or liquid for the past week. They state that every time he swallows it immediately comes up. Patient also had a fall today. He denies any head injury or loss of consciousness but is complaining of right shoulder pain. Son's also state that they noticed some purulent drainage from the trach site over the last few days. They state this is new. Patient does currently receive K Truvada for his laryngeal cancer. Upon arrival vitals were reviewed. Exam is significant for a cachectic male who appears dehydrated with purulent drainage at the trach site. Patient was provided IV fluids, vancomycin. CT of the head was obtained and showed no acute process. CT of the neck is significant for a mass that encases the esophagus. I spoke to Dr. Mills from oncology who is in agreement with admission for IV hydration and possible palliative care. Patient is a DNR. Sons and patient are agreeable with admission at this time. Patient was admitted by the hospitalist. - Vital Signs Vital signs: Temp Pulse Resp BP Pulse Ox 97.5 F 89 20 104/64 98 12/08/17 19:01 12/08/17 19:01 12/08/17 21:03 12/08/17 21:01 12/08/17 19:01 - Laboratory Result Diagrams: 12/08/17 20:25 12/08/17 20:25 Laboratory results interpreted by me: 12/08/17 12/08/17 12/08/17 20:25 20:25 20:25 RBC 3.82 L Hgb 11.1 L Hct 31.9 L Seg Neutrophils % 81.6 H Lymphocytes % 8.4 L BUN 28 H Creatinine 1.28 H Est GFR (Non-Af Amer) 54 L Glucose 53 L Direct Bilirubin 0.6 H AST 11 L ALT 19 L Creatine Kinase 21 L NT-Pro-B Natriuret Pep 1140 H Total Protein 5.9 L Albumin 2.7 L Discharge - Discharge Clinical Impression: Laryngeal cancer, Decreased appetite, Dehydration, Pulmonary laryngeal squamous cell carcin, Poor oral intake Failure to thrive Qualifiers: Failure to thrive age range: in adult Qualified Code(s): R62.7 - Adult failure to thrive Condition: Fair Disposition: ADMITTED INPATIENT Admitting Provider: Hospitalist Unit Admitted: Medical Floor
--- NOTE | 2017-12-09 08:40 | PDOC PROGRESS REPORT ---
Subjective Progress Note for:: 12/09/17 Subjective:: The patient appears to be very cachectic. He is unable to swallow. He has lost a lot of weight.. Long discussion with the oncologist. Reason For Visit: TERMINAL LARYNGEAL CA, POOR ORAL INTAKE, DYSPHAGIA Physical Exam Vital Signs: Temp Pulse Resp BP Pulse Ox 97.4 F 76 15 132/75 H 94 12/09/17 07:40 12/09/17 07:40 12/09/17 07:40 12/09/17 07:40 12/09/17 07:40 Intake & Output 12/08/17 12/09/17 12/10/17 06:59 06:59 06:59 Intake Total 369 Output Total 50 Balance 319 Weight 43.7 kg General appearance: PRESENT: severe distress Eye exam: PRESENT: conjunctival injection Neck exam: PRESENT: tracheal deviation, tracheostomy Respiratory exam: PRESENT: rhonchi, wheezes Cardiovascular exam: PRESENT: +S1, +S2 Pulses: PRESENT: +1 pedal pulses bilateral GI/Abdominal exam: PRESENT: normal bowel sounds, soft Extremities exam: PRESENT: tenderness Musculoskeletal exam: PRESENT: tenderness Neurological exam: PRESENT: alert, awake Results Impressions: Chest CT 12/08/17 20:04 IMPRESSION: Heterogeneous mass encases the esophagus as described and is highly worrisome for neoplasm. Soft Tissue Neck CT 12/08/17 20:04 IMPRESSION: Heterogeneous mass encases the esophagus as described and is highly worrisome for neoplasm. Head CT 12/08/17 21:43 IMPRESSION: NORMAL BRAIN CT WITHOUT CONTRAST. EVIDENCE OF ACUTE STROKE: NO. Shoulder X-Ray 12/08/17 21:43 IMPRESSION: NEGATIVE STUDY OF THE RIGHT SHOULDER. NO RADIOGRAPHIC EVIDENCE OF ACUTE INJURY. Assessment & Plan - Diagnosis (1) Dehydration Is this a current diagnosis for this admission?: Yes Plan: The patient is unable to take oral p.o. intake (2) Failure to thrive Qualifiers: Failure to thrive age range: in adult Qualified Code(s): R62.7 - Adult failure to thrive Is this a current diagnosis for this admission?: Yes Plan: The patient is not able to take oral medications or any kind of food intake. (3) Laryngeal cancer Is this a current diagnosis for this admission?: Yes Plan: Progressing laryngeal cancer with CT confirming wrapping around the esophagus (4) Poor oral intake Is this a current diagnosis for this admission?: Yes Plan: Poor oral intake
--- NOTE | 2017-12-09 08:56 | PDOC CONSULTATION ---
Consultation Consult Date: 12/09/17 Attending physician:: TOYA GAY Consult reason:: Hematology Oncology consultation was requested for patient with metastatic laryngeal cancer History of Present Illness Admission Date/PCP: 12/09/17 00:47 TOYA GAY, History of Present Illness: DEEPAK WILSON is a 82 year old male very well known to me who was diagnosed with laryngeal cancer in 1991. He underwent Laryngectomy and did well until he was found to have a recurrence in Jun 2014. Since that time, he has undergone multiple rounds of salvage therapy, most recently Keytruda from 01/2017 until his most recent dose on 11/07/2017. However, his most recent scans have shown progression, despite active treatment. He has been having increasing difficulty swallowing and his weight has been declining. He presented to the ED today after a fall at home. He states that he hurt his collar bone. He has not been able to eat anything for the past week and is only able to take a few sips at a time. Past Medical History Cardiac Medical History: Reports: Coronary Artery Disease, Myocardial Infarction - 2005, Hypertension - on meds Pulmonary Medical History: Reports: Chronic Obstructive Pulmonary Disease (COPD ) - o2 prn 2l nc Denies: Asthma, Bronchitis, Pneumonia, Tuberculosis Neurological Medical History: Denies: Seizures GI Medical History: Reports: Gastroesophageal Reflux Disease Denies: Hepatitis, Hiatal Hernia Musculoskeltal Medical History: Denies: Arthritis Psychiatric Medical History: Denies: Depression Hematology: Denies: Anemia, Sickle Cell Disease Past Surgical History Past Surgical History: Reports: Other - Laryngectomy, AAA repair, Lumbar fusion , Esophageal dilations Denies: Pacemaker Social History Lives with: Family Smoking Status: Former Smoker Frequency of Alcohol Use: None Hx Recreational Drug Use: No Drugs: None Hx Prescription Drug Abuse: No - Advance Directive Resuscitation Status: Do Not Resuscitate Family History Family History: Reviewed & Not Pertinent, Hypertension Parental Family History Reviewed: Yes - Father of [facility] Children Family History Reviewed: Yes Sibling(s) Family History Reviewed.: No Medication/Allergy Home Medications: Aspirin [Ecotrin 81 mg EC Tablet] 81 mg PO DAILY 07/20/12 Levothyroxine Sodium [Synthroid 0.1 mg Tablet] 88 mcg PO DAILY 07/20/12 Lisinopril [Prinivil 20 mg Tablet] 20 mg PO BID 07/20/12 Allergies/Adverse Reactions: ibuprofen [From Motrin] Allergy (Mild, Verified 12/08/17 18:58) GETS VERY SICK atorvastatin calcium [From Lipitor] Allergy (Verified 12/08/17 18:58) GET VERY SICK Review of Systems Constitutional: ABSENT: fever(s) Eyes: ABSENT: visual disturbances Ears: ABSENT: hearing changes Nose, Mouth, and Throat: PRESENT: sore throat Cardiovascular: ABSENT: chest pain Respiratory: PRESENT: sputum Gastrointestinal: PRESENT: vomiting, other - Unable to swallow. Musculoskeletal: PRESENT: muscle weakness. ABSENT: deformity Integumentary: ABSENT: rash Neurological: PRESENT: frequent falls Psychiatric: ABSENT: anxiety Hematologic/Lymphatic: ABSENT: easy bruising Physical Exam Vital Signs: Temp Pulse Resp BP Pulse Ox 97.4 F 76 15 132/75 H 94 12/09/17 07:40 12/09/17 07:40 12/09/17 07:40 12/09/17 07:40 12/09/17 07:40 Intake & Output 12/08/17 12/09/17 12/10/17 06:59 06:59 06:59 Intake Total 369 Output Total 50 Balance 319 Weight 43.7 kg General appearance: PRESENT: thin Exam: 82 year old male. Sitting up in bed comfortably. Eye exam: PRESENT: EOMI Mouth exam: PRESENT: dry mucosa Teeth exam: PRESENT: other - DFentures in place. Throat exam: PRESENT: other - tracheostomy Neck exam: PRESENT: tracheostomy - stoma appears to have open wound at the base. Respiratory exam: PRESENT: other - Lungs are clear bilaterally, but increased secretions and upper airway noise. Cardiovascular exam: PRESENT: RRR GI/Abdominal exam: PRESENT: soft. ABSENT: tenderness Extremities exam: ABSENT: pedal edema Musculoskeletal exam: ABSENT: deformity Neurological exam: PRESENT: alert, awake Psychiatric exam: PRESENT: appropriate affect Focused psych exam: ABSENT: restlessness Skin exam: PRESENT: cyanosis Results Impressions: Chest CT 12/08/17 20:04 IMPRESSION: Heterogeneous mass encases the esophagus as described and is highly worrisome for neoplasm. Soft Tissue Neck CT 12/08/17 20:04 IMPRESSION: Heterogeneous mass encases the esophagus as described and is highly worrisome for neoplasm. Head CT 12/08/17 21:43 IMPRESSION: NORMAL BRAIN CT WITHOUT CONTRAST. EVIDENCE OF ACUTE STROKE: NO. Shoulder X-Ray 12/08/17 21:43 IMPRESSION: NEGATIVE STUDY OF THE RIGHT SHOULDER. NO RADIOGRAPHIC EVIDENCE OF ACUTE INJURY. Status: Image reviewed by me Assessment & Plan - Plan Summary Plan Summary: I discussed his care with his son Kvng as well as with Dr. Gay. All are in agreement for patient to be discharged home with hospice, as the patient has requested. I will have family meeting today at 4:30 PM with [facility] to make these arrangements. Patients questions have been answered.
[2017-12-09] MEDS ORDERED: LEVOTHYROXINE SODIUM 0.1 MG TABLET PO SCH (10:00)
[2017-12-09] MEDS ORDERED: LEVOTHYROXINE SODIUM 0.088 MG TABLET PO ONE (10:00)
[2017-12-09] MEDS ORDERED: ASPIRIN 81 MG TABLET, ENT COATED PO SCH (10:00)
[2017-12-09] MEDS ORDERED: PANTOPRAZOLE SODIUM 40 MG VIAL IV SCH (10:00)
[2017-12-09] MEDS ORDERED: ENOXAPARIN SODIUM INJ 40 MG/0.4 ML DISP.SYRIN SUBCUT SCH (10:00)
--- NOTE | 2017-12-09 10:06 | Physician Advisory Note ---
Physician Advisor ProgressNote .: Pursuant to the plan for [facility], I have reviewed the medical record for this patient. Physician Advisor Statement: Please consider documenting, if you agree: 1. "Severe malnutrition, w/BMI 14.6" Thanks! CK
--- NOTE | 2017-12-09 17:06 | PDOC DISCHARGE SUMMARY ---
General - Admit/Disc Date/PCP Admission Date/Primary Care Provider: 12/09/17 09:51 TOYA HOANGWU, Discharge Date: 12/09/17 - Discharge Diagnosis (1) Dehydration Is this a current diagnosis for this admission?: Yes (2) Failure to thrive Is this a current diagnosis for this admission?: Yes (3) Laryngeal cancer Is this a current diagnosis for this admission?: Yes (4) Poor oral intake Is this a current diagnosis for this admission?: Yes (5) Severe malnutrition Is this a current diagnosis for this admission?: Yes (6) DNR (do not resuscitate) Is this a current diagnosis for this admission?: Yes (7) Palliative care status Is this a current diagnosis for this admission?: Yes Summary: Discharge home with hospice for palliative care - Additional Information Resuscitation Status: Do Not Resuscitate Discharge Diet: As Tolerated Discharge Activity: Activity As Tolerated Home Medications: Aspirin [Ecotrin 81 mg EC Tablet] 81 mg PO DAILY 07/20/12 Lisinopril [Prinivil 20 mg Tablet] 20 mg PO Q12 07/20/12 Levothyroxine Sodium [Synthroid 0.088 mg Tablet] 0.088 mg PO Q6AM 12/09/17 History of Present Illness History of Present Illness: DEEPAK WILSON is a 82 year old male Hospital Course Hospital Course: After the admission the patient has received IV fluids. He was seen by the oncologist that has been treating him as an outpatient. After having a conversation with the family and the patient in agreement has been reached by the oncologist and the family about palliative care and the discharge home with hospice Physical Exam Vital Signs: Temp Pulse Resp BP Pulse Ox 97.3 F 69 16 106/66 95 12/09/17 11:26 12/09/17 11:26 12/09/17 11:26 12/09/17 11:26 12/09/17 11:26 General appearance: PRESENT: no acute distress Head exam: PRESENT: atraumatic Neck exam: PRESENT: tracheostomy Respiratory exam: PRESENT: rhonchi Cardiovascular exam: PRESENT: +S1, +S2 Extremities exam: PRESENT: tenderness Musculoskeletal exam: PRESENT: tenderness Results Impressions: Chest CT 12/08/17 20:04 IMPRESSION: Heterogeneous mass encases the esophagus as described and is highly worrisome for neoplasm. Soft Tissue Neck CT 12/08/17 20:04 IMPRESSION: Heterogeneous mass encases the esophagus as described and is highly worrisome for neoplasm. Head CT 12/08/17 21:43 IMPRESSION: NORMAL BRAIN CT WITHOUT CONTRAST. EVIDENCE OF ACUTE STROKE: NO. Shoulder X-Ray 12/08/17 21:43 IMPRESSION: NEGATIVE STUDY OF THE RIGHT SHOULDER. NO RADIOGRAPHIC EVIDENCE OF ACUTE INJURY. Qualifiers - * PATIENT BEING DISCHARGED WITH ANY OF THE FOLLOWING DIAGNOSIS: No
--- NOTE | 2017-12-09 17:06 | PDOC PROGRESS REPORT ---
Subjective Progress Note for:: 12/09/17 Reason For Visit: TERMINAL LARYNGEAL CA, POOR ORAL INTAKE, DYSPHAGIA Family meeting took place this evening from 4:30 pm until 5:00pm. Marta, admitting nurse with [facility] was present as well as the patient and his 2 sons. Patient requests discharge home now with Hospice services. Family agrees. They will transport patient by private vehicle. All questions were answered to the best of my ability. He will have no oral meds on discharge and will use Hospice comfort kit as needed. Dr. Cornelius was notified as well. Physical Exam Vital Signs: Temp Pulse Resp BP Pulse Ox 97.3 F 69 16 106/66 95 12/09/17 11:26 12/09/17 11:26 12/09/17 11:26 12/09/17 11:26 12/09/17 11:26 Results Impressions: Chest CT 12/08/17 20:04 IMPRESSION: Heterogeneous mass encases the esophagus as described and is highly worrisome for neoplasm. Soft Tissue Neck CT 12/08/17 20:04 IMPRESSION: Heterogeneous mass encases the esophagus as described and is highly worrisome for neoplasm. Head CT 12/08/17 21:43 IMPRESSION: NORMAL BRAIN CT WITHOUT CONTRAST. EVIDENCE OF ACUTE STROKE: NO. Shoulder X-Ray 12/08/17 21:43 IMPRESSION: NEGATIVE STUDY OF THE RIGHT SHOULDER. NO RADIOGRAPHIC EVIDENCE OF ACUTE INJURY.
[2017-12-09 17:41] VITALS: BP 151/88
[2017-12-10] MEDS ORDERED: LEVOTHYROXINE SODIUM 0.088 MG TABLET PO SCH (06:00)
== END 2017-12-09 17:50 | disposition hospice, home (50) | DRG 146 ==
LOC: ER 18:22 → EH 12-09 00:47 → 4N 12-09 02:25 → OBSVTOIN 12-09 09:51
PROVIDERS: ADMIT Internal Medicine; ATTEND Internal Medicine
DX: C32.9 Malignant neoplasm of larynx, unspecified (principal); E43 Unspecified severe protein-calorie malnutrition; R64 Cachexia; Z68.1 Body mass index [BMI] 19.9 or less, adult; Z66 Do not resuscitate; Z51.5 Encounter for palliative care; E86.0 Dehydration; R62.7 Adult failure to thrive; I10 Essential (primary) hypertension; E78.5 Hyperlipidemia, unspecified; I73.9 Peripheral vascular disease, unspecified; E03.9 Hypothyroidism, unspecified; I25.10 Atherosclerotic heart disease of native coronary artery without angina pectoris; M79.89 Other specified soft tissue disorders; Z93.0 Tracheostomy status
CPT/HCPCS: 36415; 70450; 70491; 71260; 80053; 82550; 82553; 83605; 83735; 83880; 84100; 84484; 85025; 87040; 93005; 93010; 96365; 99285; G0378; J3370; J7050; S0164